=== PATIENT | male | born 1975 | race Caucasian/White ===

== ENCOUNTER 2017-01-05 17:56 | Emergency (ER) | payer MEDICAID ==
--- NOTE | 2017-01-05 18:17 | Emergency Department Record ---
History of Present Illness - General Chief complaint: Vomiting Stated complaint: MISSY,VOMITING Time Seen by Provider: 01/05/17 18:07 Source: Family Mode of Arrival: Wheelchair Limitations: No limitations - History of Present Illness Initial comments: The patient is here with his caregiver due to vomiting once about an hour ago. Per the caregiver he has been "whiny" today and they think he possibly did have a seizure. There has been no reported fever, diarrhea, or any other change from his baseline. The patient has severe mental retardation and does not communicate or walk and is wheelchair bound. MD complaint: Nausea, Vomiting Onset/Timin -: Minutes(s) Associated Symptoms: Denies other symptoms - Related Data Home Medications Medication Instructions Recorded Confirmed Last Taken Benefiber 2 each PO TID 06/02/15 01/05/17 01/05/17 Levetiracetam [Keppra] 500 mg PO BID 06/02/15 01/05/17 01/05/17 Phenytoin Sodium Extended 100 mg PO BID 06/02/15 01/05/17 01/05/17 [Dilantin] Calcium Carbonate/Vitamin D3 1 each PO 01/05/17 01/05/17 [Oyster Shell Calcium-Vit D Tab] Nystatin 1 apply TP BID 01/05/17 01/05/17 01/04/17 Allergies Allergy/AdvReac Type Severity Reaction Status Date / Time No Known Drug Allergies Allergy Verified 06/01/15 23:54 Travel Screening - Travel/Exposure Within Last 30 Days Have you traveled within the last 30 days?: No - Travel/Exposure Within Last Year Have you traveled outside the [place] in the last year?: No - Additonal Travel Details Have you been exposed to anyone with a communicable illness?: No Review of Systems Constitutional: Denies: Chills, Fever ENT: Denies: Congestion Respiratory: Denies: Cough, Dyspnea Cardiovascular: Denies: Arrhythmia, Chest pain Past Medical History - SOCIAL HISTORY Smoking Status: Never smoker Alcohol Use: None Drug Use: None - RESPIRATORY Hx Respiratory Disorders: No - CARDIOVASCULAR Hx Cardio Disorders: No - NEURO Hx Neuro Disorders: Yes Hx Seizures: Yes Comment:: severe mental retardation - GI Hx GI Disorders: Yes Comment:: pureed diet - Hx Genitourinary Disorders: Yes Hx Bladder Problem: Yes (incontinence) - ENDOCRINE Hx Endocrine Disorders: No - MUSCULOSKELETAL Hx Musculoskeletal Disorders: Yes Comment:: scoliosis - PSYCH Hx Psych Problems: No - HEMATOLOGY/ONCOLOGY Hx Hematology/Oncology Disorders: No Family Medical History Any Significant Family History?: No Family Hx Comment (NOT TO BE USED IN PLACE OF ITEMS BELOW): unknown Physical Exam - General General Appearance: Alert, No acute distress - Head Head exam: Atraumatic, Normocephalic, Normal inspection - Eye Eye exam: Normal appearance, PERRL - ENT Throat exam: Normal inspection (but difficulty to examine due to the patient not being cooperative.). negative: Tonsillar erythema, Tonsillomegaly, Tonsillar exudate - Neck Neck exam: Normal inspection, Full ROM. negative: Tenderness - Respiratory Respiratory exam: Normal lung sounds bilaterally. negative: Respiratory distress - Cardiovascular Cardiovascular Exam: Regular rate, Normal rhythm, Normal heart sounds, Tachycardia - GI/Abdominal GI/Abdominal exam: Soft, Normal bowel sounds. negative: Guarding, Rebound, Rigid, Tenderness Course Vital Signs 01/05/17 18:00 Pulse Rate 122 H Respiratory 20 Rate Blood Pressure 130/97 Pulse Ox 98 - Reevaluation(s) Reevaluation #1: The patient is doing very well at this time and has not coughed in the ED. He is resting comfortably and there has been no further vomiting. I did discuss the lab tests with the caregiver and the need to lower his dose of Dilantin. Presently the patient is having no respiratory issues and no signs of any aspiration. 01/05/17 19:10 01/05/17 20:25 Reevaluation #2: The patient seems to be doing well. He is able to drink water with no vomiting or obvious discomfort. I did explain the lab tests to the caregiver and did recommend holding the Dilantin for one day and restarting at a lower dose. At this time the patient is not coughing or having any respiratory distress. The caregivers are to monitor the patient for possible aspiration and return to the ER if worse. 01/05/17 19:55 Medical Decision Making - Data Complexity MDM Data: Labs Ordered and/or Reviewed, X-Ray Ordered and/or Reviewed - Lab Data Result diagrams: 01/05/17 18:29 01/05/17 18:29 - Radiology Data Radiology results: Report reviewed (CXR: No acute changes per Rad.) Disposition Disposition: Discharge Clinical Impression: Vomiting Qualifiers: Vomiting type: unspecified Vomiting Intractability: non-intractable Nausea presence: without nausea Qualified Code(s): R11.11 - Vomiting without nausea Disposition: Home, Self-Care Condition: (1) Good Instructions: Acute Nausea and Vomiting (ED) Additional Instructions: Please do not give the Dilantin for one day and then restart at 1/2 the dose. Please have the Dilantin level rechecked in 3 days and please consult with his PCP as to the proper dose to keep him on. Please return to the ER for any pain, fever, or difficulty breathing. Forms: Patient Portal Access Time of Disposition: 19:58
[2017-01-05 18:43] LABS: HEMATOCRIT 53.3 % (42.0-52.0); HEMOGLOBIN 17.2 gm/dl (14.0-18.0); MEAN CELL VOLUME 96.2 fl (81-97); MEAN CORPUSCULAR HGB CONC 32.3 g/dl (32-36); MEAN PLATELET VOLUME 10.2 fl (7.4-10.4); PLATELET COUNT 258 K/uL (130-400); RED BLOOD COUNT 5.54 M/uL (4.40-5.70); RED CELL DISTRIBUTION WIDTH 12.6 % (11.5-14.5); WHITE BLOOD COUNT W/O DIFF 11.3 K/uL (4.2-12.2)
[2017-01-05 18:55] LABS: ANION GAP 20.4 (7-16); BLOOD UREA NITROGEN 22 mg/dL (9-20); CARBON DIOXIDE 26.6 mmol/L (22-30); CREATININE 0.7 mg/dL (0.66-1.25); DILANTIN-PHENYTOIN 26.6 ug/mL (10-20); EST GLOMERULAR FILTRATION RATE > 60 ml/min; GLUCOSE,RANDOM 181 mg/dL (70-110)
[2017-01-05] MEDS ORDERED: 0.9 % SODIUM CHLORIDE 1,000 ML BAG IV ONE (19:06)
--- NOTE | 2017-01-08 15:13 | RADIOLOGY REPORT ---
EXAM: CHEST AP or PA ONLY HISTORY: DIFFICULTY IN BREATHING. TECHNIQUE: Single AP view of the chest was performed. FINDINGS: Heart size normal. There is severe scoliosis of the thoracolumbar spine. Low lung volumes limit evaluation. No infiltrate or pleural effusion. IMPRESSION: LOW LUNG VOLUMES LIMIT EVALUATION. NO ACUTE PROCESS. JOB NUMBER: [id number] MTDD
== END 2017-01-05 20:14 | disposition home or self-care (01) ==
LOC: ER 17:56
DX: R11.11 Vomiting without nausea (principal); R06.00 Dyspnea, unspecified; F72 Severe intellectual disabilities; G40.909 Epilepsy, unspecified, not intractable, without status epilepticus
CPT/HCPCS: 71010; 80048; 80185; 85027; 96360; 99284; J7030